=== PATIENT | male | born 1990 | race Caucasian/White ===

== ENCOUNTER 2020-04-13 11:23 | Emergency (ER) | payer BC, SELFPAY ==
--- NOTE | 2020-04-13 11:47 | ED.GENADULT ---
HPI - General Adult General Chief complaint: Upper Respiratory Infection Stated complaint: aches all over and diarrhea Time Seen by Provider: 04/13/20 11:48 Source: patient and RN notes reviewed Mode of arrival: ambulatory Limitations: no limitations History of Present Illness HPI narrative: 29-year-old male presents concern for 5-day history of watery diarrhea, body aches, rhinorrhea, headache. Reports exposure to coworker with Covid. He denies fever, loss of sense of taste or smell, cough, shortness of breath. MD complaint: Diarrhea Related Data Home Medications Medication Instructions Recorded Confirmed sertraline mg 04/13/20 Allergies Allergy/AdvReac Type Severity Reaction Status Date / Time No Known Allergies Allergy Verified 04/13/20 11:57 Review of Systems Review of Systems: Narrative: CONSTITUTIONAL: Denies malaise, chills, sweats, or fever. EYES: Denies visual changes, redness, or discharge. ENT: Reports rhinorrhea. Denies congestion, sinus pain, otalgia or sore throat. CARDIOVASCULAR: Denies chest pain, palpitations, or edema. RESPIRATORY: Denies cough or dyspnea. GASTROINTESTINAL: Denies abdominal pain, nausea, vomiting. Reports diarrhea GENITOURINARY: Denies dysuria or hematuria. SKIN: Denies rash or itching. MUSCULOSKELETAL: Reports myalgia. NEUROLOGIC: Report headache. All systems reviewed & are unremarkable except as noted in HPI and below PMFSH Comments At time of signature, agree with nursing past medical, surgical, social and family history. There is no relevant family history pertinent to the presenting complaint Exam Narrative: Exam Narrative: GENERAL: Well-appearing, well-nourished, and in no acute distress. HEAD: Normocephalic, atraumatic. EYES: PERRLA, conjunctivae clear ENT: Nares clear. Mucous membranes moist. NECK: Supple. CHEST: No respiratory distress. Clear to auscultation. No bony deformities, no asymmetry. Speaks in full sentences. HEART: Regular rate and rhythm. No murmur heard. SKIN: Warm, dry, no rash. NEURO: Alert and oriented x3. PSYCH: Normal mood and affect Course Course Emergency Course: Patient is aware of diagnosis, understands and agrees to treatment plan. Anticipatory guidance given. Patient agrees to follow-up as directed and is aware of reasons to seek care at the emergency department. Portions of this record may have been created with voice recognition software Vital Signs Vital signs: Vital Signs Temperature 98.1 F 04/13/20 11:48 Pulse Rate 81 04/13/20 11:48 Respiratory Rate 16 04/13/20 11:48 Blood Pressure 137/78 04/13/20 11:48 Pulse Oximetry 97 04/13/20 11:48 Temperature 98.1 F 04/13/20 11:48 Pulse Rate 81 04/13/20 11:48 Respiratory Rate 16 04/13/20 11:48 Blood Pressure 137/78 04/13/20 11:48 Pulse Oximetry 97 04/13/20 11:48 Reviewed. Medical Decision Making MDM Narrative Medical decision making narrative: Differential diagnosis considered: Coulter virus, strep pharyngitis, allergic rhinitis, upper respiratory tract infection, sinusitis, rhinosinusitis, nasopharyngitis. viral pharyngitis, otitis media, otitis externa, pneumonia, bronchitis, viral cough syndrome, viral syndrome, and influenza. Exam findings show no acute concerns or changes; patient is non-toxic appearing and is in no distress. Patient is appropriate for outpatient treatment and follow-up. Vital Signs Vital Signs: Vital Signs Temperature 98.1 F 04/13/20 11:48 Pulse Rate 81 04/13/20 11:48 Respiratory Rate 16 04/13/20 11:48 Blood Pressure 137/78 04/13/20 11:48 Pulse Oximetry 97 04/13/20 11:48 Temperature 98.1 F 04/13/20 11:48 Pulse Rate 81 04/13/20 11:48 Respiratory Rate 16 04/13/20 11:48 Blood Pressure 137/78 04/13/20 11:48 Pulse Oximetry 97 04/13/20 11:48 Lab Data Labs: Lab Results 04/13/20 Range/Units 11:45 POC SARS CoV-2 Ag Negative (Negative) Critical Care Time Critical Ca
[2020-04-13 11:48] VITALS: BP 137/78; PULSE 81; RESP 16; TEMP 36.7; O2SAT 97
[2020-04-14 17:17] LABS: SARS-CoV-2 RNA PCR Negative
== END 2020-04-13 12:18 | disposition home or self-care (01) ==
PROVIDERS: Emergency Provider Nurse Practitioner; PCP Nurse Practitioner Adult Health
DX: Z20.822 Contact with and (suspected) exposure to COVID-19 (principal); F32.9 Major depressive disorder, single episode, unspecified
CPT/HCPCS: 87426; 99213; C9803; G0463; U0003; U0005